=== PATIENT | female | born 1995 | race African-American/Black ===

== ENCOUNTER 2020-11-13 12:19 | Emergency (ER) | payer OTHER ==
--- NOTE | 2020-11-13 13:46 | EDM.PDOC ---
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 Martinez) History Limitations: Reports: No Limitations - History of Present Illness INITIAL COMMENTS - FREE TEXT/NARRATIVE: HISTORY AND PHYSICAL: History of present illness: The patient is a 25-year-old female who was transferred from [facility] due to their lack of ultrasound capability today. Received report Dr. Donahue regarding the patient. The patient is a A2 female who reports that she is currently 12 to 14 weeks gestation and has no OB care to date for current . Her first OB appointment is on the [address] Triston Garcia. She has had 1 vaginal delivery, 1 first trimester spontaneous , and one elective . The patient states that she started having right lower quad pain, 10 out of 10, after using the restroom. She states she became nauseated and vomited x1. She states she has not really had any episodes of morning sickness since finding out she was . Patient states she did not eat and went immediately to the emergency room. She denies contractions or pelvic pain, vaginal discharge or bleeding, clear fluid from vagina, dysuria, hematuria, or frequency. Dr. Donahue did a pelvic exam and reported " vaginal mucosa's healthy and pink and no blood, clear fluid, or purulent drainage discharge, the cervix as pink and healthy-appearing. The cervical os closed and mucous plug in place." Records from [place] emergency department the CBC is unremarkable, CMP: Potassium 3.4 glucose 102, CRP unremarkable, magnesium 1.8, phosphorus 3.6. The HcG quantitative 157,248.3, which indicates 10 to 12 weeks . The urine was slightly cloudy, no nitrate, no leukocyte esterase and no white blood cell count. The patient received Zofran 4 mg IV and a fluid bolus of 1000 mL normal saline but refused morphine IV. The patient does have a history of chronic constipation. Patient denies any fever, chills, headache, change in vision, syncope or near syncope. Denies any chest pain, back pain, shortness of breath or cough. Denies any abdominal pain, nausea, vomiting, diarrhea, or dysuria. Has not noted any blood in urine or stool. Patient has been eating and drinking appropriately. In this emergency room the patient is rating her pain a 1 out of 10. She states she is feeling much better. In the emergency department the patient is hemodynamically stable with a blood pressure of 118/76 and a heart rate of 75. With a temperature of 96.5. She is in no apparent distress. Review of systems: As per history of present illness and below otherwise all systems reviewed and negative. Past medical history: As per history of present illness and as reviewed below otherwise noncontributory. Surgical history: As per history of present illness and as reviewed below otherwise noncontributory. Social history: See social history for further information Family history: As per history of present illness and as reviewed below otherwise noncontributory. Physical exam: General: Well developed and well nourished. Alert and orientated x 3. Nontoxic in appearance and in no acute distress. Nursing notes were reviewed. HEENT: Atraumatic, normocephalic, pupils equal and reactive bilaterally, negative for conjunctival pallor or scleral icterus, mucous membranes moist, TMs normal bilaterally, throat clear, neck supple, nontender, trachea midline. No drooling or trismus noted. No meningeal signs. No hot potato voice noted. Lungs: Clear to auscultation bilaterally. No wheezes, rales, or rhonchi. Chest nontender. Normal work of breathing, no accessory muscles used. Heart: S1S2, regular rate and rhythm without overt murmur, gallops, or rubs. No JVD. No peripheral edema Abdomen: Soft, nondistended, slight tenderness RLQ. Normoactive bowel sounds. Negative for masses or costovertebral tenderness. Skin: Intact, warm, dry. No lesions or rashes noted. Hematologic: No petechiae or purpra. Mucosa appropriate color and normal nail bed color and refill. Extremities: Atraumatic, moves all extremities per self without difficulty or deficits, negative for cords or calf pain. Neurovascular unremarkable. Neuro: Awake, alert, oriented. Cranial nerves II through XII unremarkable. Cerebellum unremarkable. Motor and sensory unremarkable throughout. Exam nonfocal. Psychiatric: Mood and affect are appropriate. Normal thought process. Answering questions appropriately. Notes: *This patient was seen and evaluated during the 2019 SARS-CoV-2 novel coronavirus pandemic period. Community viral transmission is ongoing at time of this encounter and the emergency department is operating under pandemic response procedures. After discussion and examination the patient is agreeable to a ultrasound. heart tones were attempted but unsuccessful. Ultrasound Impression: Live intrauterine as described above. Left ovarian cyst, likely physiologic. This can be a source of pain. Dr. Marshall, general surgeon, consulted regarding right lower quad pain and results of ultrasound. Informed Dr. Marshall of patient's pain from 10 to a 2 without any pain medication patient still has mild tenderness right lower quad. No nausea as she was treated with Zofran in [place]. Dr. Marshall stated low risk of appendicitis at this point. If patient develops a fever or has return of pain she should return to the emergency department for further evaluation. Dr. Marshall stated that OB could be consulted if needed. The patient does have an OB appointment on the with Dr. Garcia. Dr. Escobedo consulted on case. I will have the patient follow-up with her normal OB appointment with instructions to return to the emergency department if she develops a fever or the right lower quad pain returns. After talking with the patient she is agreeable to the discharge plan. I have talked with the patient about today's findings, in addition to providing specific details for plan of care. Reassessment at the time of disposition demonstrates that the patient is in no acute distress. The patient is stable for discharge, counseling was provided and we discussed in great detail signs and symptoms that would prompt them to return to the Emergency Department. Medication, follow up and supportive care measures were reviewed and discussed. Voices understanding and is agreeable to plan of care. Denies any further questions or concerns at this time. Diagnostics:Abdomen US Impression: Live intrauterine , right lower quad pain Plan: 1. You were evaluated today on an emergent basis. Your plaints of right lower quad pain that you experience this morning after using the restroom that caused nausea and an episode of vomiting had been it evaluated in [place] with blood work, a urinalysis and transferred here for an ultrasound. Your white blood cell count which indicates infection was normal. Your urinalysis did not indicate an infection. Your ultrasound report indicated a live intrauterine . You do have a left ovarian cyst which could cause pain however your pain is located on your right lower side. If you develop a fever or your pain returns you should return to the emergency department. 2. You can alternate Tylenol and ibuprofen as needed for pain and fever management. 3. We encourage you to follow up with your primary care provider and/or recommended specialist in the next few days for re-evaluation and further care/management. 4. If your symptoms should worsen, new symptoms develop or any of the signs and symptoms we discussed should arise please return to the emergency room or call 911 (if needed). Definitive disposition and diagnosis as appropriate pending reevaluation and review of above. abdomen Pain Score (Numeric/FACES): 2 - Related Data Allergies Allergy/AdvReac Type Severity Reaction Status Date / Time No Known Allergies Allergy Verified 11/13/20 12:35 Home Meds: Home Meds B6/Folic/B12/Coffee/Phosphatid [Neuriva Plus Gummy] 1 tab PO DAILY 11/13/20 [History] ED ROS GENERAL - Review of Systems Review Of Systems: Comprehensive ROS is negative, except as noted in HPI. ED EXAM, GI/ABD - Physical Exam Exam: See Below (See dictation) Course - Vital Signs Last Recorded V/S: Last Vital Signs Temp 96.5 F L 11/13/20 12:22 Pulse 83 11/13/20 13:15 Resp 17 11/13/20 13:15 BP 132/57 L 11/13/20 13:15 Pulse Ox 97 11/13/20 13:15 Departure - Departure Time of Disposition: 14:23 Disposition: Home, Self-Care 01 Condition: Good Clinical Impression: Abdominal pain Qualifiers: Abdominal location: right lower quadrant Qualified Code(s): R10.31 - Right lower quadrant pain - Discharge Information *PRESCRIPTION DRUG MONITORING PROGRAM REVIEWED*: Not Applicable *COPY OF PRESCRIPTION DRUG MONITORING REPORT IN PATIENT GRETTA: Not Applicable Instructions: Abdominal Pain During Referrals: PCP,None [Primary Care Provider] - Forms: ED Department Discharge Additional Instructions: The following information is given to patients seen in the emergency department who are being discharged to home. This information is to outline your options for follow-up care. We provide all patients seen in our emergency department with a follow-up referral. The need for follow-up, as well as the timing and circumstances, are variable depending upon the specifics of your emergency department visit. If you don't have a primary care physician on staff, we will provide you with a referral. We always advise you to contact your personal physician following an emergency department visit to inform them of the circumstance of the visit and for follow-up with them and/or the need for any referrals to a consulting specialist. The emergency department will also refer you to a specialist when appropriate. This referral assures that you have the opportunity for follow-up care with a specialist. All of these measure are taken in an effort to provide you with optimal care, which includes your follow-up. Under all circumstances we always encourage you to contact your private physician who remains a resource for coordinating your care. When calling for follow-up care, please make the office aware that this follow-up is from your recent emergency room visit. If for any reason you are refused follow-up, please contact the [facility] Emergency Department at and asked to speak to the emergency department charge nurse. [facility] - [facility] [address] [place] [id number] [address] [address] Plan: 1. You were evaluated today on an emergent basis. Your plaints of right lower quad pain that you experience this morning after using the restroom that caused nausea and an episode of vomiting had been it evaluated in [place] with blood work, a urinalysis and transferred here for an ultrasound. Your white blood cell count which indicates infection was normal. Your urinalysis did not indicate an infection. Your ultrasound report indicated a live intrauterine . You do have a left ovarian cyst which could cause pain however your pain is located on your right lower side. If you develop a fever or your pain returns you should return to the emergency department. 2. You can alternate Tylenol and ibuprofen as needed for pain and fever management. 3. We encourage you to follow up with your primary care provider and/or recommended specialist in the next few days for re-evaluation and further care/management. 4. If your symptoms should worsen, new symptoms develop or any of the signs and symptoms we discussed should arise please return to the emergency room or call 911 (if needed). Sepsis Event Note (ED) - Evaluation Sepsis Screening Result: No Definite Risk - Focused Exam Vital Signs: Vital Signs Temp Pulse Resp BP Pulse Ox 11/13/20 13:15 83 17 132/57 L 97 11/13/20 12:22 96.5 F L 75 17 118/76 98
--- NOTE | 2020-11-13 14:02 | US ---
Examination: Obstetric ultrasound Indication: Right lower quadrant pain, . Technique: Grayscale, color Doppler, and spectral Doppler images are obtained transabdominally and transvaginally. Comparison: None available. Findings: Uterus measures 9.5 x 6.1 x 8.3 cm. A gestational sac is identified in the uterus. The crown-rump length is 2.0 cm, suggesting a 8 week 4 day . heart rate is 171 bpm. Cervix is closed and measures 3.9 cm in length. Ovaries are symmetric in size and echogenicity. There is flow in both of the ovaries. Right ovary measures 2.0 x 1.5 x 2.2 cm. Left ovary measures 3.9 x 3.4 x 2.5 cm. It contains a cyst measuring 3.4 x 1.7 x 2.4 cm. No free fluid. No adnexal mass. Impression: Live intrauterine as described above. Left ovarian cyst, likely physiologic. This can be a source of pain. Dictated by Justin He MD @ 11/13/2020 2:01:[address] Justin He @ Nov 13 2020 2:01PM
== END 2020-11-13 15:06 | disposition home or self-care (01) ==
LOC: MW.ED 12:19
DX: O99.891 Other specified diseases and conditions complicating pregnancy (principal); R10.31 Right lower quadrant pain
CPT/HCPCS: 76857; 76857-26; 99284; 99284-25

== ENCOUNTER 2021-06-17 16:56 | Inpatient (IN) | payer OTHER ==
[2021-06-17] MEDS ORDERED: Misoprostol 200 MCG Tab PO PRN (17:19)
[2021-06-17] MEDS ORDERED: Sodium Chloride 0.9% 2.5 ML Syringe FLUSH PRN (17:19)
[2021-06-17] MEDS ORDERED: Butorphanol 1 MG/ML SDV IVPUSH PRN (17:19)
[2021-06-17] MEDS ORDERED: Tranexamic Acid 1,000 MG in Sodium Chloride 0.9% 100 ML IV PRN (17:19)
[2021-06-17] MEDS ORDERED: Sodium Chloride 0.9% 20 ML SDV IV PRN (17:19)
[2021-06-17] MEDS ORDERED: Lidocaine 1% 50 ML MDV INJECT PRN (17:19)
[2021-06-17] MEDS ORDERED: Water For Irrigation,Sterile 1,000 ML Container IRR PRN (17:19)
[2021-06-17] MEDS ORDERED: Carboprost Tromethamine 250 MCG/1 ML Amp IM PRN (17:19)
[2021-06-17] MEDS ORDERED: Nalbuphine 10 MG/1 ML Vial IVPUSH PRN (17:19)
[2021-06-17] MEDS ORDERED: Sodium Chloride 0.9% 10 ML Syringe FLUSH PRN (17:19)
[2021-06-17] MEDS ORDERED: Ondansetron 4 MG/2 ML SDV IVPUSH PRN (17:19)
[2021-06-17] MEDS ORDERED: Methylergonovine 0.2 MG/1 ML Amp IM PRN (17:19)
[2021-06-17] MEDS ORDERED: Oxytocin/0.9 % Sodium Chloride 30 UNIT/500 ML BAG IV SCH (17:30)
[2021-06-17] MEDS ORDERED: Lactated Ringers 1,000 ML IV SCH (17:30)
--- NOTE | 2021-06-17 17:30 | PCM.LDHP ---
L&D History of Present Illness - General Date of Service: 06/17/21 Admit Problem/Dx: Patient Status Order with Admit Dx/Problem 06/17/21 17:19 Patient Status [ADT] Routine Admission Diagnosis/Problem Admission Diagnosis/Problem Source of Information: Patient History Limitations: Reports: No Limitations - History of Present Illness Introduction:: 26 year old female at 39w3d (EDC 06/21/2021 by 8w4d ultrasound) presents to Labor and Delivery in active labor. States contractions started irregular last evening and were occurring every 7 minutes prior to arrival. Has a history of precipitous labor at 36 weeks with her previous delivery. Reports good movement. Denies leaking fluid or vaginal bleeding. Uncomplicated , Dr. Garcia provider. - Related Data Allergies/Adverse Reactions: Allergies Allergy/AdvReac Type Severity Reaction Status Date / Time No Known Allergies Allergy Verified 06/17/21 17:24 Home Medications: Home Meds B6/Folic/B12/Coffee/Phosphatid [Neuriva Plus Gummy] 1 tab PO DAILY 11/13/20 [H istory] Past Medical History [employer] History: Reports: Spontaneous , Other (See Below) Other OB/BYN History: x 2 Social & Family History - Family History Family Medical History: No Pertinent Family History - Caffeine Use Caffeine Use: Reports: None H&P Review of Systems - Review of Systems: Review Of Systems: See Below General: Reports: No Symptoms HEENT: Reports: No Symptoms Pulmonary: Reports: No Symptoms Cardiovascular: Reports: No Symptoms Gastrointestinal: Reports: Abdominal Pain Genitourinary: Reports: No Symptoms Musculoskeletal: Reports: Back Pain Skin: Reports: No Symptoms Psychiatric: Reports: No Symptoms Neurological: Reports: No Symptoms Hematologic/Lymphatic: Reports: No Symptoms Immunologic: Reports: No Symptoms L&D Exam - Exam Exam: See Below - Vital Signs Weight: 155 lb - OB Specific Contraction Frequency (min): 1-2 Contraction Intensity: Moderate Movement: Active Heart Tones: Present Heart Tones per Min: 140 Heart Rate (FHR) Variability: Moderate (6-25 bpm) Presentation: Vertex Estimated Weight: 3300 grams by Nelidaopolds - Rain Score Rain Score Cervix Position: Anterior Rain Score Consistency: Soft Rain Score Effacement: >80% Rain Score Dilation: > 5 cm Rain Score 's Station: -1 ,0 Rain Score Total: 12 - Exam General: Alert Lungs: Normal Respiratory Effort Cardiovascular: Regular Rate GI/Abdominal Exam: Soft, Non-Tender Back Exam: Normal Inspection, Full Range of Motion Extremities: Normal Inspection, Normal Range of Motion, Non-Tender, No Pedal Edema Skin: Warm, Dry, Intact Psychiatric: Normal Mood Problem List Initiated/Reviewed/Updated: Yes Orders Last 24hrs: Active Orders 24 hr Category Date Time Status Patient Status [ADT] Routine ADT 06/17/21 17:19 Active Heart Tones [RC] CONTINUOUS Care 06/17/21 17:20 Active Non Stress Test [RC] PER UNIT ROUTINE Care 06/17/21 17:19 Active May Shower [RC] ASDIRECTED Care 06/17/21 17:20 Active Notify Provider [RC] PRN Care 06/17/21 17:20 Active Up ad Cadence [RC] ASDIRECTED Care 06/17/21 17:19 Active Up ad Cadence [RC] ASDIRECTED Care 06/17/21 17:20 Active Vaginal Exam [RC] Click to Edit Care 06/17/21 17:19 Active Vaginal Exam [RC] PRN Care 06/17/21 17:20 Active Vital Signs [RC] PER UNIT ROUTINE Care 06/17/21 17:19 Active Vital Signs [RC] PER UNIT ROUTINE Care 06/17/21 17:20 Active CBC W/O DIFF,HEMOGRAM [HEME] Routine Lab 06/17/21 17:20 Ordered CORONAVIRUS COVID-19 CAITY [MOLEC] Routine Lab 06/17/21 17:22 Ordered RPR (SYPHILIS SERO) W/ RFLX [REF] Routine Lab 06/17/21 17:20 Ordered TYPE AND SCREEN [BBK] Routine Lab 06/17/21 17:20 Ordered Butorphanol [Stadol] Med 06/17/21 17:19 Ordered 1 mg IVPUSH Q1H PRN Carboprost Tromethamine [Hemabate DS] Med 06/17/21 17:19 Ordered 250 mcg IM ASDIRECTED PRN Lactated Ringers [Ringers, Lactated] 1,000 ml Med 06/17/21 17:30 Ordered IV ASDIRECTED Lidocaine 1% [Xylocaine 1%] Med 06/17/21 17:19 Ordered 50 ml INJECT ONETIME PRN Methylergonovine [Methergine] Med 06/17/21 17:19 Ordered 0.2 mg IM ASDIRECTED PRN Nalbuphine [Nubain] Med 06/17/21 17:19 Ordered 10 mg IVPUSH Q1H PRN Ondansetron [Zofran] Med 06/17/21 17:19 Ordered 4 mg IVPUSH Q6H PRN Oxytocin/0.9 % Sodium Chloride [Oxytocin 30 Unit in NS Med 06/17/21 17:30 Ordered 0.9% 500 ML Premix] 30 unit in 500 ml IV TITRATE Sodium Chloride 0.9% [Normal Saline] Med 06/17/21 17:19 Ordered 10 ml IV ASDIRECTED PRN Sodium Chloride 0.9% [Saline Flush] Med 06/17/21 17:19 Ordered 10 ml FLUSH ASDIRECTED PRN Sodium Chloride 0.9% [Saline Flush] Med 06/17/21 17:19 Ordered 2.5 ml FLUSH ASDIRECTED PRN Tranexamic Acid [Cyklokapron] 1,000 mg Med 06/17/21 17:19 Ordered Sodium Chloride 0.9% [Normal Saline] 100 ml IV ONETIME Water For Irrigation,Sterile [Sterile Water for Med 06/17/21 17:19 Ordered Irrigation] 1,000 ml IRR ASDIRECTED PRN miSOPROStoL [Cytotec] Med 06/17/21 17:19 Ordered 200 mcg PO ONETIME PRN Scalp Electrode [WOMSER] Per Unit Routine Oth 06/17/21 17:20 Ordered Peripheral IV Insertion Adult [OM.PC] Routine Oth 06/17/21 17:20 Ordered Resuscitation Status Routine Resus Stat 06/17/21 17:19 Ordered Medication Orders Butorphanol Tartrate (Butorphanol 1 Mg/Ml Sdv) 1 mg IVPUSH Q1H PRN PRN Reason: Pain (severe 7-10) Carboprost Tromethamine (Carboprost Tromethamine 250 Mcg/1 Ml Amp) 250 mcg IM ASDIRECTED PRN PRN Reason: Post Hemorrhage Lactated Ringer's (Ringers, Lactated) 1,000 mls @ 150 mls/hr IV ASDIRECTED VENECIA Oxytocin/Sodium Chloride (Oxytocin 30 Unit In Ns 0.9% 500 Ml Premix) 30 unit in 500 mls @ 999 mls/hr IV TITRATE VENECIA Tranexamic Acid 1,000 mg/ (Sodium Chloride) 110 mls @ 660 mls/hr IV ONETIME PRN PRN Reason: Bleeding Lidocaine HCl (Lidocaine 1% 50 Ml Mdv) 50 ml INJECT ONETIME PRN PRN Reason: Laceration repair Methylergonovine Maleate (Methylergonovine 0.2 Mg/1 Ml Amp) 0.2 mg IM ASDIRECTED PRN PRN Reason: Post Hemorrhage Misoprostol (Misoprostol 200 Mcg Tab) 200 mcg PO ONETIME PRN PRN Reason: Post Hemorrhage Nalbuphine HCl (Nalbuphine 10 Mg/1 Ml Vial) 10 mg IVPUSH Q1H PRN PRN Reason: Pain (severe 7-10) Ondansetron HCl (Ondansetron 4 Mg/2 Ml Sdv) 4 mg IVPUSH Q6H PRN PRN Reason: Nausea/Vomiting Sodium Chloride (Sodium Chloride 0.9% 10 Ml Syringe) 10 ml FLUSH ASDIRECTED PRN PRN Reason: Keep Vein Open Sodium Chloride (Sodium Chloride 0.9% 2.5 Ml Syringe) 2.5 ml FLUSH ASDIRECTED PRN PRN Reason: Keep Vein Open Sodium Chloride (Sodium Chloride 0.9% 20 Ml Sdv) 10 ml IV ASDIRECTED PRN PRN Reason: IV Use Sterile Water (Water For Irrigation,Sterile 1,000 Ml Container) 1,000 ml IRR ASDIRECTED PRN PRN Reason: delivery Assessment/Plan Comment:: 26 year old female at 39w3d (EDC 06/21/2021 by 8w4d ultrasound) in spontaneous active labor * Admit to Labor and Delivery * IV access obtained, lab work and COVID-19 swab collected * Rh positive, rubella immune, GBS negative * Epidural PRN pain management, patient declines * Offered AROM for augmentation, patient declines at this time Dispo: stable. Anticipate routine labor course.
[2021-06-17] MEDS ORDERED: Lidocaine 1% 20 ML MDV ONE (17:34)
[2021-06-17] MEDS ORDERED: Morphine 2 MG/ML SYRINGE IVPUSH ONE (18:25)
[2021-06-17] MEDS ORDERED: Morphine 2 MG/ML SYRINGE ONE (18:27)
[2021-06-17] MEDS ORDERED: Benzocaine/Menthol 20%-0.5% Spray 78 GM Cannister TOP PRN (18:55)
[2021-06-17] MEDS ORDERED: Bisacodyl 10 MG Supp RECTAL PRN (18:55)
[2021-06-17] MEDS ORDERED: Ibuprofen 400 MG Tab PO PRN (18:55)
[2021-06-17] MEDS ORDERED: Acetaminophen 500 MG Tab PO PRN (18:55)
[2021-06-17] MEDS ORDERED: Docusate Sodium 100 MG Cap PO PRN (18:55)
[2021-06-17] MEDS ORDERED: oxyCODONE 5 MG Tab PO PRN (18:55)
[2021-06-17] MEDS ORDERED: Lanolin 100% Cream 7 GM Tube TOP PRN (18:55)
--- NOTE | 2021-06-17 19:01 | PCM.DEL ---
L & D Note - General Info Date of Service: 06/17/21 Mother's Due Date: 06/21/21 - Delivery Note Labor: Augmented by ARM Delivery Outcome: Livebirth Presentation: Right Occiput Anterior (REYNOLD) Nuchal Cord: Present (x1, tight) Anesthesia Type: Local Anesthetic: Lidocaine (Xylocaine) 1% Plain Local Anesthetic Volume: Other (10) Amniotic Fluid Description: Clear Episiotomy Type: None Laceration: 2nd Degree Suture type: Vicryl Suture size: 2-0 Placenta: Intact, Spontaneous Cord: 3 Vessels Estimated Blood Loss: 150 Resuscitation Needed: No [place]: Bulb Syringe, Stimulated, [place] Used Provider: Triston Garcia Score 1 min: 8 Score 5 min: 9 - General Info Date of Service: 06/17/21 Admission Dx/Problem (Free Text): Patient Status Order with Admit Dx/Problem 06/17/21 17:19 Patient Status [ADT] Routine Admission Diagnosis/Problem Admission Diagnosis/Problem - Patient Data Weight - Most Recent: 155 lb Lab Results Last 24 Hours: Laboratory Results - last 24 hr 06/17/21 06/17/21 06/17/21 Range/Units 17:05 17:05 17:15 WBC 13.98 H (4.0-11.0) K/uL RBC 4.18 L (4.30-5.90) M/uL Hgb 12.7 (12.0-16.0) g/dL Hct 38.5 (36.0-46.0) % MCV 92.1 (80.0-98.0) fL MCH 30.4 (27.0-32.0) pg MCHC 33.0 (31.0-37.0) g/dL RDW Std Deviation 44.3 (28.0-62.0) fl RDW Coeff of Sergio 13 (11.0-15.0) % Plt Count 253 (150-400) K/uL MPV 11.70 (7.40-12.00) fL Nucleated RBC % 0.0 /100WBC Nucleated RBCs # 0 K/uL SARS-CoV-2 RNA (CAITY) NEGATIVE (NEGATIVE) Blood Type O POSITIVE Antibody Screen NEGATIVE Med Orders - Current: Current Medications Butorphanol Tartrate (Butorphanol 1 Mg/Ml Sdv) 1 mg IVPUSH Q1H PRN PRN Reason: Pain (severe 7-10) Carboprost Tromethamine (Carboprost Tromethamine 250 Mcg/1 Ml Amp) 250 mcg IM ASDIRECTED PRN PRN Reason: Post Hemorrhage Lactated Ringer's (Ringers, Lactated) 1,000 mls @ 150 mls/hr IV ASDIRECTED VENECIA Oxytocin/Sodium Chloride (Oxytocin 30 Unit In Ns 0.9% 500 Ml Premix) 30 unit in 500 mls @ 999 mls/hr IV TITRATE VENECIA Tranexamic Acid 1,000 mg/ (Sodium Chloride) 110 mls @ 660 mls/hr IV ONETIME PRN PRN Reason: Bleeding Lidocaine HCl (Lidocaine 1% 50 Ml Mdv) 50 ml INJECT ONETIME PRN PRN Reason: Laceration repair Methylergonovine Maleate (Methylergonovine 0.2 Mg/1 Ml Amp) 0.2 mg IM ASDIRECTED PRN PRN Reason: Post Hemorrhage Misoprostol (Misoprostol 200 Mcg Tab) 200 mcg PO ONETIME PRN PRN Reason: Post Hemorrhage Nalbuphine HCl (Nalbuphine 10 Mg/1 Ml Vial) 10 mg IVPUSH Q1H PRN PRN Reason: Pain (severe 7-10) Ondansetron HCl (Ondansetron 4 Mg/2 Ml Sdv) 4 mg IVPUSH Q6H PRN PRN Reason: Nausea/Vomiting Sodium Chloride (Sodium Chloride 0.9% 10 Ml Syringe) 10 ml FLUSH ASDIRECTED PRN PRN Reason: Keep Vein Open Sodium Chloride (Sodium Chloride 0.9% 2.5 Ml Syringe) 2.5 ml FLUSH ASDIRECTED PRN PRN Reason: Keep Vein Open Sodium Chloride (Sodium Chloride 0.9% 20 Ml Sdv) 10 ml IV ASDIRECTED PRN PRN Reason: IV Use Sterile Water (Water For Irrigation,Sterile 1,000 Ml Container) 1,000 ml IRR ASDIRECTED PRN PRN Reason: delivery Discontinued Medications Lidocaine HCl (Lidocaine 1% 20 Ml Mdv) Confirm Administered Dose 20 ml .ROUTE .STK-MED ONE Stop: 06/17/21 17:35 Morphine Sulfate (Morphine 2 Mg/Ml Syringe) 2 mg IVPUSH ONETIME ONE Stop: 06/17/21 18:26 Morphine Sulfate (Morphine 2 Mg/Ml Syringe) Confirm Administered Dose 2 mg .ROUTE .STK-MED ONE Stop: 06/17/21 18:28 - Problem List Review Problem List Initiated/Reviewed/Updated: Yes - My Orders Last 24 Hours: My Active Orders 06/17/21 17:05 RPR (SYPHILIS SERO) W/ RFLX [REF] Routine 06/17/21 17:19 Patient Status [ADT] Routine Non Stress Test [RC] PER UNIT ROUTINE Up ad Cadence [RC] ASDIRECTED Vaginal Exam [RC] Click to Edit Vital Signs [RC] PER UNIT ROUTINE Butorphanol [Stadol] 1 mg IVPUSH Q1H PRN Carboprost Tromethamine [Hemabate DS] 250 mcg IM ASDIRECTED PRN Lidocaine 1% [Xylocaine 1%] 50 ml INJECT ONETIME PRN Methylergonovine [Methergine] 0.2 mg IM ASDIRECTED PRN Nalbuphine [Nubain] 10 mg IVPUSH Q1H PRN Ondansetron [Zofran] 4 mg IVPUSH Q6H PRN Sodium Chloride 0.9% [Normal Saline] 10 ml IV ASDIRECTED PRN Sodium Chloride 0.9% [Saline Flush] 10 ml FLUSH ASDIRECTED PRN Sodium Chloride 0.9% [Saline Flush] 2.5 ml FLUSH ASDIRECTED PRN Tranexamic Acid [Cyklokapron] 1,000 mg Sodium Chloride 0.9% [Normal Saline] 100 ml IV ONETIME Water For Irrigation,Sterile [Sterile Water for Irrigation] 1,000 ml IRR ASDIRECTED PRN miSOPROStoL [Cytotec] 200 mcg PO ONETIME PRN Resuscitation Status Routine 06/17/21 17:20 Heart Tones [RC] CONTINUOUS May Shower [RC] ASDIRECTED Notify Provider [RC] PRN Up ad Cadence [RC] ASDIRECTED Vaginal Exam [RC] PRN Vital Signs [RC] PER UNIT ROUTINE Scalp Electrode [WOMSER] Per Unit Routine Peripheral IV Insertion Adult [OM.PC] Routine 06/17/21 17:30 Lactated Ringers [Ringers, Lactated] 1,000 ml IV ASDIRECTED Oxytocin/0.9 % Sodium Chloride [Oxytocin 30 Unit in NS 0.9% 500 ML Premix] 30 unit in 500 ml IV TITRATE 06/17/21 18:55 Patient Status [ADT] Routine May Shower [RC] ASDIRECTED Up ad Cadence [RC] ASDIRECTED Vital Signs [RC] PER UNIT ROUTINE Acetaminophen [Tylenol Extra Strength] 1,000 mg PO Q4H PRN Acetaminophen [Tylenol Extra Strength] 500 mg PO Q4H PRN Benzocaine/Menthol [Dermoplast Pain Relief 20%-0.5% [place]] 78 gm TOP ASDIRECTED PRN Docusate Sodium [Colace] 100 mg PO Q12H PRN Ibuprofen [Motrin] 400 mg PO Q4H PRN Ibuprofen [Motrin] 800 mg PO Q6H PRN Lanolin [Lansinoh HPA] See Dose Instructions TOP ASDIRECTED PRN bisacodyL [Dulcolax] 10 mg RECTAL ONETIME PRN oxyCODONE 5 mg PO Q2H PRN witch Shirin [Tucks] 1 pad TOP ASDIRECTED PRN Assess Lochia [WOMSER] Per Unit Routine Assess Uterine Involution [WOMSER] Per Unit Routine Peripheral IV Discontinue [OM.PC] Routine 06/18/21 05:11 HEMOGLOBIN/HEMATOCRIT,HH [HEME] Timed - Plan Plan:: Routine cares * Rh positive, rubella immune, GBS negative * PO pain medications ordered * Encourage ambulation and fluid intake when able * Regular diet as tolerated * Plans to bottle feed Dispo: stable. Admit to floor and anticipate routine course.
[2021-06-17] MEDS: Ibuprofen 800 MG Tab PO PRN (19:10)
[2021-06-17] MEDS: Witch Hazel Medicated Pads 40/Jar TOP PRN (19:11)
--- NOTE | 2021-06-18 00:10 | OR ---
SURGEON: ROMAN GRADY MD DATE OF PROCEDURE: 06/17/2021 PREOPERATIVE DIAGNOSES: 1. Term intrauterine at 39 weeks and 3 days. 2. Active labor. POSTOPERATIVE DIAGNOSES: 1. Term intrauterine at 39 weeks and 3 days. 2. Active labor. PROCEDURES PERFORMED: 1. Spontaneous vaginal delivery. 2. Repair of second-degree perineal laceration. PRIMARY SURGEON: Roman Grady MD. ANESTHESIA: Local anesthetic, 1% lidocaine. ESTIMATED BLOOD LOSS: 150 mL. COMPLICATIONS: None known. FINDINGS: Viable male , score of 8 at one minute, 9 at five minutes. Weight of 6 pounds 8 ounces. Spontaneous vaginal delivery, intact placenta, three vessel cord, clear amniotic fluid. Second-degree perineal laceration. DISPOSITION: The patient in Labor and Delivery room with . PROCEDURE DETAILS: The patient is a 26-year-old, 4, para 0-1-2-1, who presented to Labor and Delivery, went into spontaneous active labor at 39 weeks and 3 days on the evening of 06/17/2021. Upon arrival, she was noted to be 5 cm with a bulging amniotic sac. The patient is admitted to Labor and Delivery, and labor quickly progressed to 8 cm, 100% effaced with a bulging bag. At that time, patient requested artificial rupture of membranes, which was performed with large amount of clear fluid noted. Shortly thereafter, the patient had a strong desire to push and was noted to be completely dilated. She desired to labor on hands and knees, and over approximately 20 minutes, she pushed with contractions. The infant's head delivered atraumatically spontaneously followed by the anterior shoulder. Tight nuchal cord x2 was noted and delivered through. Posterior shoulder and remainder of the body were delivered without any difficulty. The 's oropharynx and nares were bulb suctioned. The infant was then handed off to her mother with attending nursing staff at her side. After delay, the cord was clamped x2 and cut. Cord blood gases were then obtained. Light pressure was applied while the placenta was delivered spontaneously intact. Fundal uterine massage was then performed while 30 units of Pitocin was given in 500 mL of IV fluid. Upon inspection of the perineum, a small second-degree laceration was noted. Approximately 10 mL of 1% lidocaine was injected into the area for pain management and the patient also received 2 mg of IV morphine to help with pain control. The second-degree perineal laceration was repaired in the usual fashion with 2-0 Vicryl. Hemostasis appeared evident. The uterus remained firm. Sponge, lap, and needle count were correct. The patient tolerated the procedure well and remained in room with infant. ANNIE URBINA /[id number]
[2021-06-18] MEDS: Ibuprofen 800 MG Tab PO PRN ×3 (00:38→20:48)
[2021-06-18] MEDS: Acetaminophen 500 MG Tab PO PRN ×2 (00:39→17:53)
[2021-06-18] MEDS: Witch Hazel Medicated Pads 40/Jar TOP PRN (00:57)
--- NOTE | 2021-06-18 08:23 | PCM.PNPP ---
- General Info Date of Service: 06/18/21 Admission Dx/Problem (Free Text): Patient Status Order with Admit Dx/Problem 06/17/21 17:19 Patient Status [ADT] Routine Admission Diagnosis/Problem Admission Diagnosis/Problem Subjective Update: Resting comfortably in bed during rounds. Pain well controlled. Ambulating and voiding independently. Tolerating regular diet. Lochia decreasing. Bottlefeeding baby. - General Info Date of Service: 06/18/21 - Patient Data Vital Signs - Most Recent: Last Vital Signs Temp 97.1 F 06/18/21 03:55 Pulse 64 06/18/21 03:55 Resp 18 06/18/21 03:55 BP 105/73 06/18/21 03:55 Pulse Ox 96 06/18/21 03:55 Weight - Most Recent: 160 lb Lab Results - Last 24 Hours: Laboratory Results - last 24 hr 06/17/21 06/17/21 06/17/21 Range/Units 17:05 17:05 17:15 WBC 13.98 H (4.0-11.0) K/uL RBC 4.18 L (4.30-5.90) M/uL Hgb 12.7 (12.0-16.0) g/dL Hct 38.5 (36.0-46.0) % MCV 92.1 (80.0-98.0) fL MCH 30.4 (27.0-32.0) pg MCHC 33.0 (31.0-37.0) g/dL RDW Std Deviation 44.3 (28.0-62.0) fl RDW Coeff of Sergio 13 (11.0-15.0) % Plt Count 253 (150-400) K/uL MPV 11.70 (7.40-12.00) fL Nucleated RBC % 0.0 /100WBC Nucleated RBCs # 0 K/uL SARS-CoV-2 RNA (CAITY) NEGATIVE (NEGATIVE) Blood Type O POSITIVE Antibody Screen NEGATIVE Med Orders - Current: Current Medications Acetaminophen (Acetaminophen 500 Mg Tab) 500 mg PO Q4H PRN PRN Reason: Pain (mild 1-3) Acetaminophen (Acetaminophen 500 Mg Tab) 1,000 mg PO Q4H PRN PRN Reason: Pain (mild 1-3) Last Admin: 06/18/21 00:39 Dose: 1,000 mg Documented by: Benzocaine/Menthol (Benzocaine/Menthol 20%-0.5% [place] 78 Gm Cannister) 78 gm TOP ASDIRECTED PRN PRN Reason: Perineal Comfort Measure Last Admin: 06/17/21 19:12 Dose: 1 canister Documented by: Bisacodyl (Bisacodyl 10 Mg Supp) 10 mg RECTAL ONETIME PRN PRN Reason: Constipation Butorphanol Tartrate (Butorphanol 1 Mg/Ml Sdv) 1 mg IVPUSH Q1H PRN PRN Reason: Pain (severe 7-10) Carboprost Tromethamine (Carboprost Tromethamine 250 Mcg/1 Ml Amp) 250 mcg IM ASDIRECTED PRN PRN Reason: Post Hemorrhage Docusate Sodium (Docusate Sodium 100 Mg Cap) 100 mg PO Q12H PRN PRN Reason: Constipation Emollient Ointment (Lanolin 100% Cream 7 Gm Tube) 0 gm TOP ASDIRECTED PRN PRN Reason: Sore Nipples Lactated Ringer's (Ringers, Lactated) 1,000 mls @ 150 mls/hr IV ASDIRECTED VENECIA Oxytocin/Sodium Chloride (Oxytocin 30 Unit In Ns 0.9% 500 Ml Premix) 30 unit in 500 mls @ 999 mls/hr IV TITRATE VENECIA Last Admin: 06/17/21 18:29 Dose: 500 mls/hr Documented by: Tranexamic Acid 1,000 mg/ (Sodium Chloride) 110 mls @ 660 mls/hr IV ONETIME PRN PRN Reason: Bleeding Ibuprofen (Ibuprofen 400 Mg Tab) 400 mg PO Q4H PRN PRN Reason: Pain (mild 1-3) Ibuprofen (Ibuprofen 800 Mg Tab) 800 mg PO Q6H PRN PRN Reason: Cramping Last Admin: 06/18/21 00:38 Dose: 800 mg Documented by: Lidocaine HCl (Lidocaine 1% 50 Ml Mdv) 50 ml INJECT ONETIME PRN PRN Reason: Laceration repair Last Admin: 06/17/21 18:29 Dose: 50 ml Documented by: Methylergonovine Maleate (Methylergonovine 0.2 Mg/1 Ml Amp) 0.2 mg IM ASDIRECTED PRN PRN Reason: Post Hemorrhage Misoprostol (Misoprostol 200 Mcg Tab) 200 mcg PO ONETIME PRN PRN Reason: Post Hemorrhage Nalbuphine HCl (Nalbuphine 10 Mg/1 Ml Vial) 10 mg IVPUSH Q1H PRN PRN Reason: Pain (severe 7-10) Ondansetron HCl (Ondansetron 4 Mg/2 Ml Sdv) 4 mg IVPUSH Q6H PRN PRN Reason: Nausea/Vomiting Oxycodone HCl (Oxycodone 5 Mg Tab) 5 mg PO Q2H PRN PRN Reason: Pain (severe 7-10) Sodium Chloride (Sodium Chloride 0.9% 10 Ml Syringe) 10 ml FLUSH ASDIRECTED PRN PRN Reason: Keep Vein Open Sodium Chloride (Sodium Chloride 0.9% 2.5 Ml Syringe) 2.5 ml FLUSH ASDIRECTED PRN PRN Reason: Keep Vein Open Sodium Chloride (Sodium Chloride 0.9% 20 Ml Sdv) 10 ml IV ASDIRECTED PRN PRN Reason: IV Use Sterile Water (Water For Irrigation,Sterile 1,000 Ml Container) 1,000 ml IRR ASDIRECTED PRN PRN Reason: delivery Witch Lexie (Witch Lexie Medicated Pads 40/Jar) 1 pad TOP ASDIRECTED PRN PRN Reason: comfort care Last Admin: 06/18/21 00:57 Dose: 1 container Documented by: Discontinued Medications Lidocaine HCl (Lidocaine 1% 20 Ml Mdv) Confirm Administered Dose 20 ml .ROUTE .STK-MED ONE Stop: 06/17/21 17:35 Morphine Sulfate (Morphine 2 Mg/Ml Syringe) 2 mg IVPUSH ONETIME ONE Stop: 06/17/21 18:26 Morphine Sulfate (Morphine 2 Mg/Ml Syringe) Confirm Administered Dose 2 mg .ROUTE .STK-MED ONE Stop: 06/17/21 18:28 - Interaction Disposition, : in Room with Family Infant Feeding: Bottle Fed Infant Support Person: Significant Other - Recovery Exam Fundal Tone: Firm Fundal Level: 1 Fingerbreadths Below Umbilicus Fundal Placement: Midline Lochia Amount: Small Lochia Color: Rubra/Red Bladder Status: Voiding - Exam General: Alert Lungs: Normal Respiratory Effort Cardiovascular: Regular Rate GI/Abdominal Exam: Soft, Non-Tender Extremities: Normal Inspection, Normal Range of Motion, Non-Tender, No Pedal Edema Skin: Warm, Dry, Intact Neurological: No New Focal Deficit Psy/Mental Status: Normal Mood - Problem List Review Problem List Initiated/Reviewed/Updated: Yes - My Orders Last 24 Hours: My Active Orders 06/17/21 17:05 RPR (SYPHILIS SERO) W/ RFLX [REF] Routine 06/17/21 17:19 Patient Status [ADT] Routine Butorphanol [Stadol] 1 mg IVPUSH Q1H PRN Carboprost Tromethamine [Hemabate DS] 250 mcg IM ASDIRECTED PRN Lidocaine 1% [Xylocaine 1%] 50 ml INJECT ONETIME PRN Methylergonovine [Methergine] 0.2 mg IM ASDIRECTED PRN Nalbuphine [Nubain] 10 mg IVPUSH Q1H PRN Ondansetron [Zofran] 4 mg IVPUSH Q6H PRN Sodium Chloride 0.9% [Normal Saline] 10 ml IV ASDIRECTED PRN Sodium Chloride 0.9% [Saline Flush] 10 ml FLUSH ASDIRECTED PRN Sodium Chloride 0.9% [Saline Flush] 2.5 ml FLUSH ASDIRECTED PRN Tranexamic Acid [Cyklokapron] 1,000 mg Sodium Chloride 0.9% [Normal Saline] 100 ml IV ONETIME Water For Irrigation,Sterile [Sterile Water for Irrigation] 1,000 ml IRR ASDIRECTED PRN miSOPROStoL [Cytotec] 200 mcg PO ONETIME PRN Resuscitation Status Routine 06/17/21 17:20 May Shower [RC] ASDIRECTED Notify Provider [RC] PRN Up ad Cadence [RC] ASDIRECTED Vital Signs [RC] PER UNIT ROUTINE Scalp Electrode [WOMSER] Per Unit Routine Peripheral IV Insertion Adult [OM.PC] Routine 06/17/21 17:30 Lactated Ringers [Ringers, Lactated] 1,000 ml IV ASDIRECTED Oxytocin/0.9 % Sodium Chloride [Oxytocin 30 Unit in NS 0.9% 500 ML Premix] 30 unit in 500 ml IV TITRATE 06/17/21 18:55 Patient Status [ADT] Routine Acetaminophen [Tylenol Extra Strength] 1,000 mg PO Q4H PRN Acetaminophen [Tylenol Extra Strength] 500 mg PO Q4H PRN Benzocaine/Menthol [Dermoplast Pain Relief 20%-0.5% [place]] 78 gm TOP ASDIRECTED PRN Docusate Sodium [Colace] 100 mg PO Q12H PRN Ibuprofen [Motrin] 400 mg PO Q4H PRN Ibuprofen [Motrin] 800 mg PO Q6H PRN Lanolin [Lansinoh HPA] See Dose Instructions TOP ASDIRECTED PRN bisacodyL [Dulcolax] 10 mg RECTAL ONETIME PRN oxyCODONE 5 mg PO Q2H PRN witch Lexie [Tucks] 1 pad TOP ASDIRECTED PRN Assess Lochia [WOMSER] Per Unit Routine Assess Uterine Involution [WOMSER] Per Unit Routine Peripheral IV Discontinue [OM.PC] Routine 06/18/21 05:11 HEMOGLOBIN/HEMATOCRIT,HH [HEME] Routine 06/18/21 Breakfast Regular Diet [DIET] - Assessment Assessment:: 26 year old PPD1 s/p - Plan Plan:: Routine cares * Rh positive, rubella immune, GBS negative * PO pain medications ordered * Encourage ambulation and fluid intake when able * Regular diet as tolerated * Bottle feed Dispo: stable. Anticipate discharge today pending maternal/ status. Discharge instructions reviewed. Patient to return to clinic in 4 weeks for PPV.
[2021-06-19] MEDS ORDERED: oxyCODONE 5 MG Tab PO PRN (04:40)
[2021-06-19] MEDS ORDERED: Witch Hazel Medicated Pads 40/Jar TOP PRN (04:41)
[2021-06-19] MEDS ORDERED: Acetaminophen 500 MG Tab PO PRN ×2 (04:42→04:43)
[2021-06-19] MEDS ORDERED: Ibuprofen 400 MG Tab PO PRN (04:44)
[2021-06-19] MEDS ORDERED: Benzocaine/Menthol 20%-0.5% Spray 78 GM Cannister TOP PRN (04:44)
[2021-06-19] MEDS ORDERED: Bisacodyl 10 MG Supp RECTAL PRN (04:45)
[2021-06-19] MEDS ORDERED: Docusate Sodium 100 MG Cap PO PRN (04:45)
[2021-06-19] MEDS ORDERED: Ibuprofen 800 MG Tab PO PRN (04:48)
--- NOTE | 2021-06-19 09:08 | PCM.PNPP ---
- General Info Date of Service: 06/19/21 Functional Status: Reports: Pain Controlled, Tolerating Diet, Ambulating, Urinating - Review of Systems General: Reports: No Symptoms HEENT: Reports: No Symptoms Pulmonary: Reports: No Symptoms Cardiovascular: Reports: No Symptoms Gastrointestinal: Reports: No Symptoms Genitourinary: Reports: No Symptoms Musculoskeletal: Reports: No Symptoms Skin: Reports: No Symptoms Neurological: Reports: No Symptoms Psychiatric: Reports: No Symptoms - Patient Data Vital Signs - Most Recent: Last Vital Signs Temp 36.7 C 06/19/21 08:00 Pulse 69 06/19/21 08:00 Resp 18 06/19/21 08:00 BP 111/56 L 06/19/21 08:00 Pulse Ox 97 06/19/21 08:00 Weight - Most Recent: 160 lb Med Orders - Current: Current Medications Acetaminophen (Acetaminophen 500 Mg Tab) 500 mg PO Q4H PRN PRN Reason: Cramping Acetaminophen (Acetaminophen 500 Mg Tab) 1,000 mg PO Q4H PRN PRN Reason: Cramping Benzocaine/Menthol (Benzocaine/Menthol 20%-0.5% [place] 78 Gm Cannister) 78 gm TOP ASDIRECTED PRN PRN Reason: Perineal Comfort Measure Bisacodyl (Bisacodyl 10 Mg Supp) 10 mg RECTAL ONETIME PRN PRN Reason: Constipation Butorphanol Tartrate (Butorphanol 1 Mg/Ml Sdv) 1 mg IVPUSH Q1H PRN PRN Reason: Pain (severe 7-10) Carboprost Tromethamine (Carboprost Tromethamine 250 Mcg/1 Ml Amp) 250 mcg IM ASDIRECTED PRN PRN Reason: Post Hemorrhage Docusate Sodium (Docusate Sodium 100 Mg Cap) 100 mg PO Q12H PRN PRN Reason: Constipation Lactated Ringer's (Ringers, Lactated) 1,000 mls @ 150 mls/hr IV ASDIRECTED VENECIA Oxytocin/Sodium Chloride (Oxytocin 30 Unit In Ns 0.9% 500 Ml Premix) 30 unit in 500 mls @ 999 mls/hr IV TITRATE [facility] Last Admin: 06/17/21 18:29 Dose: 500 mls/hr Documented by: Tranexamic Acid 1,000 mg/ (Sodium Chloride) 110 mls @ 660 mls/hr IV ONETIME PRN PRN Reason: Bleeding Ibuprofen (Ibuprofen 400 Mg Tab) 400 mg PO Q4H PRN PRN Reason: Cramping Ibuprofen (Ibuprofen 800 Mg Tab) 800 mg PO Q6H PRN PRN Reason: Cramping Lidocaine HCl (Lidocaine 1% 50 Ml Mdv) 50 ml INJECT ONETIME PRN PRN Reason: Laceration repair Last Admin: 06/17/21 18:29 Dose: 50 ml Documented by: Methylergonovine Maleate (Methylergonovine 0.2 Mg/1 Ml Amp) 0.2 mg IM ASDIRECTED PRN PRN Reason: Post Hemorrhage Misoprostol (Misoprostol 200 Mcg Tab) 200 mcg PO ONETIME PRN PRN Reason: Post Hemorrhage Nalbuphine HCl (Nalbuphine 10 Mg/1 Ml Vial) 10 mg IVPUSH Q1H PRN PRN Reason: Pain (severe 7-10) Ondansetron HCl (Ondansetron 4 Mg/2 Ml Sdv) 4 mg IVPUSH Q6H PRN PRN Reason: Nausea/Vomiting Oxycodone HCl (Oxycodone 5 Mg Tab) 5 mg PO Q2H PRN PRN Reason: Pain (severe 7-10) Sodium Chloride (Sodium Chloride 0.9% 10 Ml Syringe) 10 ml FLUSH ASDIRECTED PRN PRN Reason: Keep Vein Open Sodium Chloride (Sodium Chloride 0.9% 2.5 Ml Syringe) 2.5 ml FLUSH ASDIRECTED PRN PRN Reason: Keep Vein Open Sodium Chloride (Sodium Chloride 0.9% 20 Ml Sdv) 10 ml IV ASDIRECTED PRN PRN Reason: IV Use Sterile Water (Water For Irrigation,Sterile 1,000 Ml Container) 1,000 ml IRR ASDIRECTED PRN PRN Reason: delivery Witch Lexie (Witch Lexie Medicated Pads 40/Jar) 1 pad TOP ASDIRECTED PRN PRN Reason: Perineal Comfort Measure Discontinued Medications Acetaminophen (Acetaminophen 500 Mg Tab) 500 mg PO Q4H PRN PRN Reason: Pain (mild 1-3) Acetaminophen (Acetaminophen 500 Mg Tab) 1,000 mg PO Q4H PRN PRN Reason: Pain (mild 1-3) Last Admin: 06/18/21 17:53 Dose: 1,000 mg Documented by: Benzocaine/Menthol (Benzocaine/Menthol 20%-0.5% [place] 78 Gm Cannister) 78 gm TOP ASDIRECTED PRN PRN Reason: Perineal Comfort Measure Last Admin: 06/17/21 19:12 Dose: 1 canister Documented by: Bisacodyl (Bisacodyl 10 Mg Supp) 10 mg RECTAL ONETIME PRN PRN Reason: Constipation Docusate Sodium (Docusate Sodium 100 Mg Cap) 100 mg PO Q12H PRN PRN Reason: Constipation Emollient Ointment (Lanolin 100% Cream 7 Gm Tube) 0 gm TOP ASDIRECTED PRN PRN Reason: Sore Nipples Ibuprofen (Ibuprofen 400 Mg Tab) 400 mg PO Q4H PRN PRN Reason: Pain (mild 1-3) Ibuprofen (Ibuprofen 800 Mg Tab) 800 mg PO Q6H PRN PRN Reason: Cramping Last Admin: 06/18/21 20:48 Dose: 800 mg Documented by: Lidocaine HCl (Lidocaine 1% 20 Ml Mdv) Confirm Administered Dose 20 ml .ROUTE .STK-MED ONE Stop: 06/17/21 17:35 Morphine Sulfate (Morphine 2 Mg/Ml Syringe) 2 mg IVPUSH ONETIME ONE Stop: 06/17/21 18:26 Last Admin: 06/17/21 18:30 Dose: 2 mg Documented by: Morphine Sulfate (Morphine 2 Mg/Ml Syringe) Confirm Administered Dose 2 mg .ROUTE .STK-MED ONE Stop: 06/17/21 18:28 Oxycodone HCl (Oxycodone 5 Mg Tab) 5 mg PO Q2H PRN PRN Reason: Pain (severe 7-10) Witch Lexie (Witch Lexie Medicated Pads 40/Jar) 1 pad TOP ASDIRECTED PRN PRN Reason: comfort care Last Admin: 06/18/21 00:57 Dose: 1 container Documented by: - Interaction Infant Disposition, : [place] in Room with Family Feeding: Bottle Fed Support Person: Significant Other - Recovery Exam Fundal Tone: Firm Fundal Level: 3 Fingerbreadths Below Umbilicus Fundal Placement: Midline Lochia Amount: Scant Lochia Color: Rubra/Red Perineum Description: Intact, Minimal Bruising/Swelling Episiotomy/Laceration: Approximated Bladder Status: Voiding - Exam General: Alert, Oriented, Cooperative, No Acute Distress HEENT: Pupils Equal, Pupils Reactive, EOMI Neck: Supple, Trachea Midline, No JVD Lungs: Normal Respiratory Effort GI/Abdominal Exam: Soft, Non-Tender, No Distention Extremities: Normal Inspection, Normal Range of Motion, Non-Tender, No Pedal David ma Skin: Warm, Dry, Intact Neurological: No New Focal Deficit Psy/Mental Status: Alert, Normal Affect, Normal Mood - Problem List Review Problem List Initiated/Reviewed/Updated: Yes - My Orders Last 24 Hours: My Active Orders 06/19/21 09:05 Ready for Discharge [RC] PER UNIT ROUTINE - Assessment Assessment:: 26 year old PPD2 s/p - Plan Plan:: Routine cares * Rh positive, rubella immune, GBS negative * PO pain medications ordered * Encourage ambulation and fluid intake when able * Regular diet as tolerated * Bottle feed * Baby needing bili lights Dispo: stable. Anticipate discharge today pending maternal/ status. Discharge instructions reviewed. Patient to return to clinic in 4 weeks for PPV.
== END 2021-06-19 22:58 | disposition home or self-care (01) | DRG 807 ==
LOC: MW.OBCHECK 16:56 → MW.OB 16:56 → MW.OBCHECK 17:19 → MW.OB 17:19 → OBSVTOIN 18:23 → MW.OB 20:00
PROVIDERS: ADMIT Obstetrics & Gynecology; ATTEND Obstetrics & Gynecology
PROC: 10E0XZZ Delivery of Products of Conception, External Approach (ICD-10-PCS; principal; 2021-06-17)
PROC: 0KQM0ZZ Repair Perineum Muscle, Open Approach (ICD-10-PCS; 2021-06-17)
PROC: 10907ZC Drainage of Amniotic Fluid, Therapeutic from Products of Conception, Via Natural or Artificial Opening (ICD-10-PCS; 2021-06-17)
PROC: 4A1HXCZ Monitoring of Products of Conception, Cardiac Rate, External Approach (ICD-10-PCS; 2021-06-17)
DX: O69.81X0 Labor and delivery complicated by cord around neck, without compression, not applicable or unspecified (principal); Z37.0 Single live birth; Z3A.39 39 weeks gestation of pregnancy; O70.1 Second degree perineal laceration during delivery; Z20.822 Contact with and (suspected) exposure to COVID-19
CPT/HCPCS: 36415; 59025; 59409; 85027; 86592; 86850; 86900; 86901; A9270-GY; J2001; J2270; J2590; U0002